=== PATIENT | male | born 1940 | race Caucasian/White ===

== ENCOUNTER 2016-10-30 15:11 | Inpatient (IN) | payer MEDICARE, OTHER ==
[~2016-10-30] VITALS: Ht 185.4 cm; Wt 88.5 kg
[~2016-10-30 15:11] MED LIST: CITA40 PO; PROT40TA PO; TAB-TAB PO; TAMS.4 PO; XANA1TAB6 PO
[2016-10-30 15:13] VITALS: BP 177/101; PULSE 74; RESP 14; TEMP 97.8; O2SAT 96
[2016-10-30 18:33] LABS: AUTOMATED NEUTROPHIL # 3.2 TH/MM3 (1.8-7.7); BASOPHIL # 0.1 TH/MM3 (0-0.2); BASOPHIL % 1.2 % (0.0-2.0); EOSINOPHIL # 0.1 TH/MM3 (0-0.4); EOSINOPHIL % 2.4 % (0.0-4.0); HEMATOCRIT 45.2 % (39.0-51.0); HEMO FLAGS DIFF FINAL; LYMPH % 31.2 % (9.0-44.0); LYMPHOCYTE # 1.8 TH/MM3 (1.0-4.8); MEAN CELL VOLUME 92.6 FL (80.0-100.0); MEAN CORPUSCULAR HEMOGLOBIN 30.1 PG (27.0-34.0); MEAN CORPUSCULAR HGB CONC 32.5 % (32.0-36.0); MONO % 8.7 % (0.0-8.0); NEUT % 56.5 % (16.0-70.0); PLATELET COUNT 183 TH/MM3 (150-450); RED BLOOD COUNT 4.89 MIL/MM3 (4.50-5.90); RED CELL DISTRIBUTION WIDTH 14.2 % (11.6-17.2); WHITE BLOOD COUNT 5.6 TH/MM3 (4.0-11.0)
[2016-10-30 18:51] LABS: ALT (GPT) 17 U/L (12-78); ANION GAP 9 MEQ/L (5-15); AST (GOT) 15 U/L (15-37); BICARBONATE 25.9 MEQ/L (21.0-32.0); BLOOD UREA NITROGEN 10 MG/DL (7-18); CHLORIDE 109 MEQ/L (98-107); GLOMERULAR FILTRATION RATE 94 ML/MIN (>89); POTASSIUM 3.7 MEQ/L (3.5-5.1); SODIUM (NA) 144 MEQ/L (136-145)
[2016-10-30 18:53] LABS: ALKALINE PHOSPHATASE 104 U/L (45-117); TOTAL BILIRUBIN ADULT 0.4 MG/DL (0.2-1.0)
--- NOTE | 2016-10-30 20:03 | PD ---
HPI . Depression Chief Complaint: Psychiatric Symptoms Time Seen by Provider: 19:55 Travel History International Travel<30 days: No Contact w/Intl Traveler<30days: No Traveled to known affect area: No History of Present Illness HPI Patient presents reporting depression. He states that he has a long-standing history of PTSD since the mom. He states that he is generally able to manage it. He states that on due to a series of unfortunately life events, the PTSD has "gotten the best of him." He denies any suicidal or homicidal ideation. PFSH Past Medical History Arthritis: No Asthma: No Atrial Fibrillation: No Autoimmune Disease: No Blood Disorders: No Anxiety: No Depression: Yes Heart Rhythm Problems: No Cancer: No Cardiovascular Problems: No High Cholesterol: No Chemotherapy: No Chest Pain: Yes (ANGINA ATTACK WHEN 45 YEARS OLD) Congestive Heart Failure: No COPD: Yes Cerebrovascular Accident: No Diabetes: No Diminished Hearing: No Endocrine: No Gastrointestinal Disorders: Yes (REFLUX) GERD: No Glaucoma: No Genitourinary: No Headaches: Yes ( SEVERE HEADACHE DUE TO EGGS) Hepatitis: No Hiatal Hernia: No Hypertension: Yes Immune Disorder: No Implanted Vascular Access Dvce: Yes Kidney Stones: No Musculoskeletal: No Neurologic: No Psychiatric: No Reproductive: No Respiratory: Yes (COPD) Migraines: No Myocardial Infarction: No Radiation Therapy: No Renal Failure: No Seizures: No Sleep Apnea: Yes Thyroid Disease: No Ulcer: No Past Surgical History Abdominal Surgery: Yes (LIZETH-Y, APPEND., choly) AICD: No Appendectomy: No Arteriovenous Shunt: No Body Medical Devices: 3 PINS IN LEFT SHOULDER DUE TO SURGERY IN 1994 Cardiac Surgery: Yes Cholecystectomy: No Ear Surgery: No Endocrine Surgery: No Eye Surgery: Yes (BILAT. CATARACT,) Genitourinary Surgery: No Gynecologic Surgery: No Insulin Pump: No Joint Replacement: Yes (3 PINS IN SHOLDER) Oral Surgery: Yes (TONSILS,) Pacemaker: No Thoracic Surgery: No Tonsillectomy: Yes Other Surgery: Yes Social History Alcohol Use: No Tobacco Use: No Substance Use: No Allergies-Medications (Allergen,Severity, Reaction): Coded Allergies: Oxycontin (Verified Allergy, Severe, Nausea/Vomiting, 10/30/16) Reported Meds & Prescriptions Reported Meds & Active Scripts Active Tamsulosin HCl 0.4 Mg Cap 0.4 Mg PO DAILY 30 Days Protonix (Pantoprazole Sodium) 40 Mg Tabdr 40 Mg PO DAILY 30 Days Reported Multivitamin (Multivitamins) 1 Tab Tab 1 Tab PO DAILY Xanax 1 mg (Alprazolam) Alprazolam 1 mg Tab 1 Tab PO HS Celexa 40 Mg Tab (Citalopram Hydrobromide) 40 Mg Tab 40 Mg PO DAILY Review of Systems Except as stated in HPI: all other systems reviewed are Neg General / Constitutional: No: Fever, Chills HENT: Positive: Headaches Gastrointestinal: Positive: Diarrhea Psychiatric: Positive: Depression, No: Suicidal Ideations, Homicidal Ideation Physical Exam Narrative GENERAL: Awake and alert and in no acute distress. SKIN: Warm and dry. CARDIOVASCULAR: Regular rate and rhythm. RESPIRATORY: No accessory muscle use. MUSCULOSKELETAL: No obvious deformities. No edema. NEUROLOGICAL: Awake and alert. No obvious cranial nerve deficits. Motor grossly within normal limits. Normal speech. PSYCHIATRIC: His overall mood appears sad but he does smile during the interview. He seems to have good judgment in that he is here for treatment. Data Data Last Documented VS Vital Signs Date Time Temp Pulse Resp B/P Pulse Ox O2 Delivery O2 Flow Rate FiO2 10/30/16 15:13 97.8 74 14 177/101 96 Room Air Orders Complete Blood Count With Diff (10/30/16 18:09) Comprehensive Metabolic Panel (10/30/16 18:09) Psych Screen (10/30/16 18:09) Labs Laboratory Tests Test 10/30/16 18:15 White Blood Count 5.6 TH/MM3 Red Blood Count 4.89 MIL/MM3 Hemoglobin 14.7 GM/DL Hematocrit 45.2 % Mean Corpuscular Volume 92.6 FL Mean Corpuscular Hemoglobin 30.1 PG Mean Corpuscular Hemoglobin 32.5 % Concent Red Cell Distribution Width 14.2 % Platelet Count 183 TH/MM3 Mean Platelet Volume 8.2 FL Neutrophils (%) (Auto) 56.5 % Lymphocytes (%) (Auto) 31.2 % Monocytes (%) (Auto) 8.7 % Eosinophils (%) (Auto) 2.4 % Basophils (%) (Auto) 1.2 % Neutrophils # (Auto) 3.2 TH/MM3 Lymphocytes # (Auto) 1.8 TH/MM3 Monocytes # (Auto) 0.5 TH/MM3 Eosinophils # (Auto) 0.1 TH/MM3 Basophils # (Auto) 0.1 TH/MM3 CBC Comment DIFF FINAL Differential Comment Sodium Level 144 MEQ/L Potassium Level 3.7 MEQ/L Chloride Level 109 MEQ/L Carbon Dioxide Level 25.9 MEQ/L Anion Gap 9 MEQ/L Blood Urea Nitrogen 10 MG/DL Creatinine 0.80 MG/DL Estimat Glomerular Filtration 94 ML/MIN Rate Random Glucose 102 MG/DL Calcium Level 8.7 MG/DL Total Bilirubin 0.4 MG/DL Aspartate Amino Transf 15 U/L (AST/SGOT) Alanine Aminotransferase 17 U/L (ALT/SGPT) Alkaline Phosphatase 104 U/L Total Protein 6.9 GM/DL Albumin 3.6 GM/DL [facility] Medical Decision Making Medical Screen Exam Complete: Yes Emergency Medical Condition: Yes Differential Diagnosis Differential diagnosis of depression includes but is not limited to episodic depression, major depression, bipolar disorder, PTSD Narrative Course Patient presents requesting speak to someone regarding depression. He is medically clear for psychiatric evaluation. Diagnosis Primary Impression: Depression Qualified Code: F33.1 - Moderate episode of recurrent major depressive disorder Condition: Stable Jackelin Bond MD Oct 30, 2016 20:03
[2016-10-30] MEDS ORDERED: MULT-137 PO (20:07)
[2016-10-30] MEDS ORDERED: CITA20TA4 PO (20:07)
[2016-10-30] MEDS ORDERED: DONE10TA7 PO (20:07)
[2016-10-30] MEDS ORDERED: OCUVTAB4 PO ×2 (20:07)
[2016-10-30] MEDS ORDERED: MAXA10TA2 (21:32)
[2016-10-30 22:45] VITALS: BP 168/85; PULSE 59; RESP 18; O2SAT 98
[2016-10-31 02:24] VITALS: BP 156/89; PULSE 69; RESP 17; O2SAT 98
[2016-10-31 05:16] VITALS: BP 158/85; PULSE 62; RESP 19; O2SAT 97
--- NOTE | 2016-10-31 08:44 | HHI.HP ---
Provisional Diagnosis Admission Date 10/31/2016 [place] I. 1. Major depressive disorder, recurrent, moderate 2. Posttraumatic stress disorder, chronic 3. Rule-out some degree of neurocognitive disorder [place] II. Deferred [place] V. GAF is 40 presently Certification of Person's Competence To Provide Express and Informed Consent I have personally examined Florin RiveraJr , a person being served at [facility], [place] on, Oct 31, 2016 08:44. Express and informed consent means consent voluntarily given in writing, by a competent person, after sufficient explanation and disclosure of the subject matter involved to enable the person to make a knowing and willful decision without any element of force, fraud, deceit, duress, or other form of constraint or coercion. This person is 18 years of age or older, is not now known to be incompetent to consent to treatment with a guardian advocate, and does not have a health care surrogate or proxy currently making medical treatment decisions. I have found this person to be one of the following: [x] Competent to provide express and informed consent, as defined above, for voluntary admission to this facility and is competent to provide express and informed consent for treatment. He/she has the consistent capacity to make well reasoned, willful, and knowing decisions concerning his or her medical or mental health treatment. The person fully and consistently understands the purpose of the admission for examination/placement and is fully capable of personally exercising all rights assured under [place] Incompetent to provide express and informed consent to voluntary admission, and this is incompetent to provide express and informed consent to treatment. The person must be transferred to involuntary status and a petition for a guardian advocate filed with the Circuit Court. [] Refusing to provide express and informed consent to voluntary admission but is competent to provide express and informed consent for treatment. The person must be discharged or transferred to involuntary status. Form shall be completed within 24 hours of a person's arrival at the receiving facility and filed in the clinical record of each person: 1. Admitted on a voluntary basis 2. Permitted to provide express and informed consent to his/her own treatment 3. Allowed to transfer from involuntary to voluntary status 4. Prior to permitting a person to consent to his or her own treatment after having been previously found incompetent to consent to treatment. History of Present Illness Capacity: Has Capacity HPI Mr. Rivera is a 76-year-old male with a reported history of depression and PTSD who presents on a voluntary basis for psychiatric evaluation. Reviewing the electronic medical record, I see no prior psychiatric contact within our system. Patient seen and examined. Chart reviewed. Case discussed with nursing staff and the J-pod. On my examination today, the patient reports "I'm having problems. I compare it to an electric circuit. When it's overloaded, it quits. " He says that he has been feeling increasingly depressed over the last 2 weeks or so. 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 He says he feels empty and endorses concentration, sleep and irritability difficulties. He denies any suicidal ideation noting "life is too short." No hypomanic or manic symptoms. He denies any audiovisual hallucinations, and I can elicit no delusional beliefs. He does endorse a significant history of combat trauma and says that he has been troubled more and more by nightmares and hyperarousal as his mood has worsened. No avoidance behavior. The remainder of the psychiatric ROS is negative. Past psychiatric history: Patient reports psychiatric history as detailed above. He is not currently under the care of a psychiatrist but is prescribed Celexa and Aricept by his primary care doctor. He denies a history of psychiatric admissions or suicide attempts. Family history: Patient denies a family history of serious mental illness or suicide. Chemical dependency history: Patient denies any current abuse of drugs or alcohol. He says that he quit drinking in 1973 and quit smoking around the same time. Social history: Patient resides in [place]. He is and has a girlfriend with whom he lives. He has no children. He does have a pet dog, a black Labrador. 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 He served in the [employer] during [place]. He is a [employer]. He does report that he keeps several guns including 5 long guns and about a dozen pistols. Review of Systems Other Patient complains of diarrhea for about the last week. No reported headache, vision or hearing changes, chest pain, shortness of breath, bladder issues. No other physical complaints. Past Psych History Psychological trauma history History of combat trauma Violence risk - others (6 mos) Lower imminent risk. No homicidal ideation. No psychotic or other mental illness process that would predispose to risk for violence. Violence risk - self (6 mos) Likely low imminent risk. No suicidal ideation. Future oriented. Mood has been worsening, but patient voluntarily sought help for this. No history of suicide attempts. No reported family history of suicide attempts. Patient does keep several guns but does not verbalize any suicide plans or history of suicide plans involving a firearm. Substance Abuse History Drugs/Alcohol past 12 months See above Past Family Social History Coded Allergies: Oxycontin (Verified Allergy, Severe, Nausea/Vomiting, 10/30/16) Past Medical History Includes a history of PATRICK on CPAP and headaches. Reported Medications Rizatriptan (Maxalt)10 Mg Tab 10/30/16 Multiple Vitamins W/ Minerals (Preservision Areds)1 Tab1 Tab PO BID Ref 0 10/30/16 Multiple Vitamins W/ Minerals (Preservision Areds)1 Tab2 Tab PO DAILY Ref 0 10/30/16 Donepezil 10 Mg Tab10 Mg PO HS #30 TAB Ref 0 10/30/16 Multiple Vitamins W/ Minerals (One Daily Complete For Men)1 Tab Tab1 Tab PO DAILY Ref 0 10/30/16 Discontinued Reported Medications Citalopram 20 Mg Tab20 Mg PO DAILY #30 TAB Ref 0 10/30/16 Multiple Vitamin (Multivitamin)1 Tab Tab1 Tab PO DAILY 10/19/14 Alprazolam (Xanax 1 mg)Alprazolam 1 mg Tab1 Tab PO HS 10/19/14 Citalopram Hydrobromide (Celexa 40 Mg Tab)40 Mg Tab40 Mg PO DAILY 12/18/12 Discontinued Scripts Tamsulosin HCl 0.4 Mg Cap0.4 Mg PO DAILY 30 Days Ref 2 Prov:SilvaCristian DO R1 11/03/14 Pantoprazole Sod (Protonix)40 Mg Tabdr40 Mg PO DAILY 30 Days Ref 3 Prov:SilvaCristian DO R1 11/03/14 Current Medications Medications (Trade) Dose Ordered Sig/Charmaine Route Start Time Stop Time Status Last Admin (Tylenol) 1,000 mg ONCE ONCE PO 10/31/16 08:45 10/31/16 08:46 UNV (Aricept) 10 mg HS PO 10/31/16 21:00 UNV (Theragran M Tab) 1 tab DAILY PO 10/31/16 09:00 UNV Family History See above Social History See above Patient's Strengths (min. 2) Intelligent. Verbally fluent. Physical Exam Physical examination completed by ED provider. On my examination today, patient appears to be well-nourished and well-developed and in no acute physical distress. No abnormal motor movements noted. Labs and vital signs reviewed. Vital Signs Vital Signs Date Time Temp Pulse Resp B/P Pulse Ox O2 Delivery O2 Flow Rate FiO2 10/31/16 05:16 62 19 158/85 97 Room Air 10/30/16 15:13 97.8 Lab Results Item Value Date Time White Blood Count 5.6 TH/MM3 10/30/161814 Hemoglobin 14.7 GM/DL 10/30/161814 Platelet Count 183 TH/MM3 10/30/16 181 Sodium Level 144 MEQ/L 10/30/16 181 Potassium Level 3.7 MEQ/L 10/30/161814 Blood Urea Nitrogen 10 MG/DL 10/30/16 1815 Creatinine 0.80 MG/DL 10/30/16 181 Aspartate Amino Transf (AST/SGOT) 15 U/L 10/30/16 1815 Alanine Aminotransferase (ALT/SGPT) 17 U/L 10/30/16 181 Alkaline Phosphatase 104 U/L 10/30/161814 Urine toxicology was not performed. Mental Status Examination Patient is in hospital gown. He is well groomed. He is awake and alert and oriented to person, place and date. His registration is 3 out of 3 in his recall is one out of 3 at 5 minutes. He is able to do serial sevens through 5 iterations with only 1 error. He is able to name 2 items and repeat a phrase. No abnormal motor movements noted. Speech is within normal limits for rate, tone and volume. Language and fund of knowledge seem above average. Mood is depressed and affect is restricted. Thought process linear. No loosening of associations. No evident delusions. Denies audiovisual hallucinations. Denies suicidal or homicidal ideation. Insight and judgment are fair. Assessment & Plan Problem List: (1) Major depressive disorder ICD Code: F32.9 (2) Chronic post-traumatic stress disorder (PTSD) ICD Code: F43.12 Assessment & Plan This is a 76-year-old male with psychiatric history as detailed above who presents on a voluntary basis for psychiatric evaluation. Patient reports worsening mood overlying a history of depression over the last 2 weeks in response to psychosocial stressors. Patient also reports exacerbation of underlying PTSD symptoms with prominent nightmares related to history of combat trauma. Patient is presently on Celexa and Aricept, although he is degree of cognitive impairment does not seem terribly severe at present. After a discussion of the risks and benefits, the patient requests to address his psychiatric symptoms on the inpatient psychiatric unit. We discuss multiple different strategies to manage both patient's depressive and PTSD symptoms including titrating Celexa, adding prazosin for nightmares, augmenting existing antidepressant or switching to a different agent. Patient elects to titrate Celexa and add prazosin after discussion of the risks and benefits of each strategy. I will admit the patient to the inpatient psychiatric unit to make the planned medication adjustments for stabilization and to observe. Admit inpatient. Voluntary status. Consult of the hospitalist for patient's complaints of diarrhea. C. difficile PCR. Patient uses CPAP at home and I have placed an order for this. PT evaluation and falls precautions. Check a TSH. Titrate Celexa to 30 mg daily. Add prazosin 1 mg at bedtime for nightmares. Risks and benefits of each discussed with the patient. Ativan as needed for anxiety, Benadryl as needed for EPS/sleep. Vitals every shift. Counselor to see and obtain collateral. Disposition planning. Estimated length of stay: 5-7 days. Discharge Planning Pending psychiatric stabilization Request HC Surrog/Guard Advoc?: No Problem Qualifiers (1) Major depressive disorder: Qualified Code: F33.1 - Moderate episode of recurrent major depressive disorder Junior Paiz MD Oct 31, 2016 08:44
[2016-10-31] MEDS ORDERED: CITALOPRAM HYDROBROMIDE 20 MG TAB PO SCH (09:00)
[2016-10-31] MEDS ORDERED: diphenhydrAMINE HCL 50 MG CAP PO PRN ×2 (09:30)
[2016-10-31] MEDS ORDERED: ALUMINUM/MAGNESIUM/SIMETH 30 ML CUP PO PRN (09:30)
[2016-10-31] MEDS ORDERED: LORazepam 0.5 MG TAB PO PRN (09:30)
[2016-10-31] MEDS ORDERED: MAGNESIUM HYDROXIDE SUSP 30 ML CUP PO PRN (09:30)
[2016-10-31] MEDS ORDERED: LORazepam 2 MG/ML VIAL IM PRN (09:30)
[2016-10-31] MEDS ORDERED: diphenhydrAMINE HCL 50 MG/ML VIAL IM PRN (09:30)
[2016-10-31] MEDS: ACETAMINOPHEN 325 MG TAB PO PRN ×2 (09:57→16:33)
[2016-10-31] MEDS ORDERED: cloNIDine HCL 0.1 MG TAB PO PRN (10:30)
[2016-10-31] MEDS ORDERED: ALBUTEROL SULFATE 90 MCG/ACT HFA 8 GM INHALER INH PRN (10:45)
[2016-10-31] MEDS: MULTIVITAMINS/MINERALS THERAPEUTIC TAB PO SCH (10:59)
[2016-10-31] MEDS ORDERED: ACETAMINOPHEN 500 MG CPLT PO ONE (11:00)
[2016-10-31 12:26] VITALS: BP 166/87; PULSE 69; RESP 18; TEMP 97.7; O2SAT 94
[2016-10-31] MEDS: LACTOBACILLUS ACIDOPHILUS TAB PO SCH ×2 (13:00→17:29)
--- NOTE | 2016-10-31 13:03 | PD.CONS ---
HPI Service [facility] Consult Requested By Psychiatric services Reason for Consult Diarrhea x 1 week. HTN Primary Care Physician Tamera Jones MD Diagnoses: History of Present Illness This is a 76-year-old male patient with a past medical history which includes PTSD, psoriasis, sleep apnea does use CPAP machine at home, occasional acid reflux, psoriasis and migraines. Patient is currently inpatient psychiatric center we have been consulted for assistance with management of diarrhea times one week and hypertension. Patient reports he does have a history of hypertension as well as hyperlipidemia which had resolved after his gastric bypass surgery. Patient reports he does not take any medication for hypertension at home. Patient does report he has had diarrhea for the past 6-7 days reports this is not normal for him when asked how many times per day patient moves his bowels he reports, "all day." Patient denies any evidence of bright red blood, black color or mucus present. Patient denies abdominal discomfort, pain, cramping, fevers, chills, nausea/vomiting, recent travel, sick contacts or well water consumption. Patient also denies antibiotic use in the past 30 days or changes in appetite. Patient denies chest pain, shortness of breath, headache or changes on vision as well. Review of Systems Except as stated in HPI: all other systems reviewed are Neg Past Family Social History Allergies: Coded Allergies: Oxycontin (Verified Allergy, Severe, Nausea/Vomiting, 10/30/16) Past Medical History PTSD, psoriasis, sleep apnea does use CPAP machine at home, occasional acid reflux, psoriasis and migraines Patient reports he does have a history of hypertension as well as hyperlipidemia which had resolved after his gastric bypass surgery. Past Surgical History Appendectomy, cholecystectomy, gastric bypass surgery, rotator cuff repair, hemorrhoidectomy, cataract surgery Reported Medications Maxalt (Rizatriptan Benzoate) 10 Mg Tab Preservision Areds (Multiple Vitamins W/ Minerals) 1 Tab 1 Tab PO BID Preservision Areds (Multiple Vitamins W/ Minerals) 1 Tab 2 Tab PO DAILY Donepezil 10 Mg Tab 10 Mg PO HS One Daily Complete For Men (Multiple Vitamins W/ Minerals) 1 Tab Tab 1 Tab PO DAILY Active Ordered Medications Current Medications Medications (Trade) Dose Ordered Sig/Charmaine Route Start Time Stop Time Status Last Admin (Aricept) 10 mg HS PO 10/31/16 21:00 (Theragran M Tab) 1 tab DAILY PO 10/31/16 09:00 10/31/16 10:59 (Minipress) 1 mg HS PO 10/31/16 21:00 (Ativan) 0.5 mg Q12H PRN PO 10/31/16 09:30 (Ativan Inj) 0.5 mg Q12H PRN IM 10/31/16 09:30 (Benadryl) 50 mg Q6H PRN PO 10/31/16 09:30 (Benadryl Inj) 50 mg Q6H PRN IM 10/31/16 09:30 (Benadryl) 50 mg HS PRN PO 10/31/16 09:30 (Tylenol) 650 mg Q4H PRN PO 10/31/16 09:30 10/31/16 09:57 (Milk Of Magnesia Liq) 30 ml DAILY PRN PO 10/31/16 09:30 (Mag-Al Plus Susp Liq) 30 ml Q6H PRN PO 10/31/16 09:30 (Habitrol 21 Mg Patch.24 Hr) 1 patch DAILY T-DERMAL 11/01/16 09:00 Miscellaneous Information 1 DAILY T-DERMAL 11/01/16 09:00 (CeleXA) 30 mg DAILY PO 10/31/16 11:00 (Lactinex) 1 tab TID PO 10/31/16 13:00 (Catapres) 0.1 mg Q6H PRN PO 10/31/16 10:30 (Proair Hfa Inh) 2 puff Q4H PRN INH 10/31/16 10:45 Family History Father at 75 secondary to EtOH abuse Mother had health history of hypertension hyperlipidemia MS in her 60s CVA in her 70s Social History Retired [employer] Quit EtOH use 1984 and quit tobacco use 1984 Physical Exam Vital Signs Vital Signs Date Time Temp Pulse Resp B/P Pulse Ox O2 Delivery O2 Flow Rate FiO2 10/31/16 12:26 97.7 69 18 166/87 94 10/31/16 05:16 62 19 158/85 97 Room Air 10/31/16 02:24 69 17 156/89 98 Room Air 10/30/16 22:45 59 18 168/85 98 Room Air 10/30/16 15:13 97.8 74 14 177/101 96 Room Air Physical Exam GENERAL: This is a well-nourished, well-developed patient, in no apparent distress. SKIN: No rashes, ecchymoses or lesions. Cool and dry. EYES: Extraocular motions intact. No scleral icterus. No injection or drainage. CARDIOVASCULAR: Regular rate and rhythm without murmurs, gallops, or rubs. RESPIRATORY: Clear to auscultation. Breath sounds equal bilaterally. No wheezes , rales, or rhonchi. GASTROINTESTINAL: Abdomen soft, non-tender, nondistended. No guarding. MUSCULOSKELETAL: Extremities without clubbing, cyanosis, or edema. No joint tenderness, effusion, or edema noted. No calf tenderness. Negative Homans sign bilaterally. NEUROLOGICAL: Awake and alert. No focal deficits. Motor and sensory grossly within normal limits. 4-5 out of 5 muscle strength in all muscle groups. Normal speech. Laboratory Laboratory Tests Test 10/30/16 18:15 White Blood Count 5.6 Red Blood Count 4.89 Hemoglobin 14.7 Hematocrit 45.2 Mean Corpuscular Volume 92.6 Mean Corpuscular Hemoglobin 30.1 Mean Corpuscular Hemoglobin 32.5 Concent Red Cell Distribution Width 14.2 Platelet Count 183 Mean Platelet Volume 8.2 Neutrophils (%) (Auto) 56.5 Lymphocytes (%) (Auto) 31.2 Monocytes (%) (Auto) 8.7 Eosinophils (%) (Auto) 2.4 Basophils (%) (Auto) 1.2 Neutrophils # (Auto) 3.2 Lymphocytes # (Auto) 1.8 Monocytes # (Auto) 0.5 Eosinophils # (Auto) 0.1 Basophils # (Auto) 0.1 CBC Comment DIFF FINAL Differential Comment Sodium Level 144 Potassium Level 3.7 Chloride Level 109 Carbon Dioxide Level 25.9 Anion Gap 9 Blood Urea Nitrogen 10 Creatinine 0.80 Estimat Glomerular Filtration 94 Rate Random Glucose 102 Calcium Level 8.7 Total Bilirubin 0.4 Aspartate Amino Transf 15 (AST/SGOT) Alanine Aminotransferase 17 (ALT/SGPT) Alkaline Phosphatase 104 Total Protein 6.9 Albumin 3.6 Result Diagram: 10/30/16181410/30/161814 Assessment and Plan Assessment and Plan This is a 76-year-old male patient with a past medical history which includes PTSD, psoriasis, sleep apnea does use CPAP machine at home, occasional acid reflux, psoriasis and migraines. Patient is currently inpatient psychiatric center we have been consulted for assistance with management of diarrhea times one week and hypertension. Patient reports he does have a history of hypertension as well as hyperlipidemia which had resolved after his gastric bypass surgery. Patient reports he does not take any medication for hypertension at home. Patient does report he has had diarrhea for the past 6-7 days Hypertension Possibly situational will start Norvasc 2.5 mg daily Clonidine 0.1 mg as needed Monitor trend Diarrhea 7 days Lactinex by mouth Stool sample for C. difficile encourage PO hydration CMP reviewed Monitor for dehydration Major depressive disorder PTSD management per psychiatric team DVT prophylaxis patient ambulatory- low risks Written by Amy Johnson, acting as scribe for Dr. Anderson on 10/31/16 at 13:20. All or portions of this note were transcribed by scribe Amy Johnson. I , Dr. Matthias Anderson personally performed the history, physical exam, and medical decision making; and confirmed the accuracy of the information in the transcribed note. Authenticated by Dr. Matthias Anderson on 10/31/16 at 13:50. Amy Johnson Oct 31, 2016 13:03 Matthias Anderson MD Oct 31, 2016 13:50
[2016-10-31] MEDS ORDERED: PILL SPLITTER OTHER PRN (13:15)
[2016-10-31] MEDS: CITALOPRAM HYDROBROMIDE 20 MG TAB PO SCH (13:49)
[2016-10-31] MEDS: amLODIPine BESYLATE 5 MG TAB PO SCH (13:53)
[2016-10-31 14:53] VITALS: BP 164/88; PULSE 70; O2SAT 93
[2016-10-31 14:55] VITALS: BP_SYST 156; BP_SYST 162; BP_DIAS 119; BP_DIAS 85; PULSE 69; PULSE 83; O2SAT 95; O2SAT 96
[2016-10-31 17:17] VITALS: BP 146/86; PULSE 73; RESP 18; TEMP 98.1; O2SAT 94
[2016-10-31] MEDS: DONEPEZIL HCL 5 MG TAB PO SCH (21:31)
[2016-10-31] MEDS: PRAZOSIN HCL 1 MG CAP PO SCH (21:31)
[2016-11-01] MEDS: ACETAMINOPHEN 325 MG TAB PO PRN ×3 (03:40→13:42)
[2016-11-01 06:10] VITALS: BP 120/65; PULSE 69; RESP 18; TEMP 97.8; O2SAT 93
[2016-11-01 08:29] LABS: ANION GAP 7 MEQ/L (5-15); BICARBONATE 31.1 MEQ/L (21.0-32.0); BLOOD UREA NITROGEN 11 MG/DL (7-18); CHLORIDE 103 MEQ/L (98-107); GLOMERULAR FILTRATION RATE 85 ML/MIN (>89); HDL CHOLESTEROL 39.1 MG/DL (40.0-60.0); LDL CHOLESTEROL 84 MG/DL (0-99); SODIUM (NA) 141 MEQ/L (136-145)
[2016-11-01 08:30] LABS: POTASSIUM 4.2 MEQ/L (3.5-5.1)
[2016-11-01] MEDS: LACTOBACILLUS ACIDOPHILUS TAB PO SCH ×3 (09:00→17:59)
[2016-11-01] MEDS: REMOVE OLD PATCH T-DERMAL SCH (09:00)
[2016-11-01] MEDS: NICOTINE 21 MG/24 HR PATCH T-DERMAL SCH (09:00)
[2016-11-01] MEDS: MULTIVITAMINS/MINERALS THERAPEUTIC TAB PO SCH (09:10)
[2016-11-01] MEDS: amLODIPine BESYLATE 5 MG TAB PO SCH (09:10)
[2016-11-01] MEDS: CITALOPRAM HYDROBROMIDE 20 MG TAB PO SCH (09:10)
--- NOTE | 2016-11-01 10:01 | HHI.PR ---
Subjective Remarks F/u Diarrhea and HTN. Does not feel well can't get warm. Last BM yesterday noon. Also chronic VALERIO. No other complaints. Ole RN Objective Vitals Vital Signs Date Time Temp Pulse Resp B/P Pulse Ox O2 Delivery O2 Flow Rate FiO2 11/01/16 06:10 97.8 69 18 120/65 93 10/31/16 17:17 98.1 73 18 146/86 94 10/31/16 14:55 69 162/85 96 10/31/16 14:55 83 156/119 95 10/31/16 14:53 70 164/88 93 10/31/16 12:26 97.7 69 18 166/87 94 Result Diagram: 10/30/16 1815 11/01/16 0640 Objective Remarks GENERAL: This is a well-nourished, well-developed patient, in no apparent distress. SKIN: No rashes, ecchymoses or lesions. Cool and dry. EYES: Extraocular motions intact. No scleral icterus. No injection or drainage. CARDIOVASCULAR: Regular rate and rhythm without murmurs, gallops, or rubs. RESPIRATORY: Clear to auscultation. Breath sounds equal bilaterally. No wheezes , rales, or rhonchi. GASTROINTESTINAL: Abdomen soft, non-tender, nondistended. No guarding. MUSCULOSKELETAL: Extremities without clubbing, cyanosis, or edema. No joint tenderness, effusion, or edema noted. No calf tenderness. Negative Homans sign bilaterally. NEUROLOGICAL: Awake and alert. No focal deficits. Motor and sensory grossly within normal limits. 4-5 out of 5 muscle strength in all muscle groups. Normal speech. Nonfocal A/P Assessment and Plan This is a 76-year-old male patient with a past medical history which includes PTSD, psoriasis, sleep apnea does use CPAP machine at home, occasional acid reflux, psoriasis and migraines. Patient is currently inpatient psychiatric center we have been consulted for assistance with management of diarrhea times one week and hypertension. Patient reports he does have a history of hypertension as well as hyperlipidemia which had resolved after his gastric bypass surgery. Patient reports he does not take any medication for hypertension at home. Patient does report he has had diarrhea for the past 6-7 days Hypertension Improving continue Norvasc 2.5 mg daily Clonidine 0.1 mg as needed Monitor trend Diarrhea 7 days Lactinex by mouth Stool sample for C. difficile encourage PO hydration CMP reviewed Monitor for dehydration Improving Major depressive disorder PTSD management per psychiatric team Chronic VALERIO/Migraines. Nonfocal. Check ESR. APAP prn DVT prophylaxis patient ambulatory- low risks Follow-up A1c Matthias Anderson MD Nov 01, 2016 10:01
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
[2016-11-01 17:15] LABS: HEMOGLOBIN A1b 1.8 %; HEMOGLOBIN Ao 85.8 %; HEMOGLOBIN LA1C 1.9 %; HEMOGLOBIN P3 3.7 %
[2016-11-01 19:25] VITALS: BP 150/71; PULSE 72; RESP 18; TEMP 97.4; O2SAT 98
[2016-11-01] MEDS: PRAZOSIN HCL 1 MG CAP PO SCH (20:04)
[2016-11-01] MEDS: DONEPEZIL HCL 5 MG TAB PO SCH (20:05)
[2016-11-02 06:06] VITALS: BP 121/67; PULSE 73; RESP 16; TEMP 98; O2SAT 93
[2016-11-02] MEDS: NICOTINE 21 MG/24 HR PATCH T-DERMAL SCH (09:00)
[2016-11-02] MEDS: REMOVE OLD PATCH T-DERMAL SCH (09:00)
[2016-11-02] MEDS: MULTIVITAMINS/MINERALS THERAPEUTIC TAB PO SCH (09:01)
[2016-11-02] MEDS: amLODIPine BESYLATE 5 MG TAB PO SCH (09:02)
[2016-11-02] MEDS: CITALOPRAM HYDROBROMIDE 20 MG TAB PO SCH (09:03)
[2016-11-02] MEDS: LACTOBACILLUS ACIDOPHILUS TAB PO SCH ×3 (09:08→18:02)
--- NOTE | 2016-11-02 11:02 | HHI.PR ---
Subjective Remarks F/u Diarrhea and HTN. Reports feeling well today offers no specific complaints. Reports headache has resolved no further diarrhea. Objective Vitals Vital Signs Date Time Temp Pulse Resp B/P Pulse Ox O2 Delivery O2 Flow Rate FiO2 11/02/16 06:06 98.0 73 16 121/67 93 11/01/16 19:25 97.4 72 18 150/71 98 I/O 11/01/16 11/01/16 11/01/16 11/02/16 11/02/16 11/02/16 07:00 15:00 23:00 07:00 15:00 23:00 Intake Total 240 ml 360 ml Balance 240 ml 360 ml Intake Oral 240 ml 360 ml Result Diagram: 10/30/16 1815 11/01/16 0640 Objective Remarks GENERAL: This is a well-nourished, well-developed patient, in no apparent distress. SKIN: No rashes, ecchymoses or lesions. Cool and dry. EYES: Extraocular motions intact. No scleral icterus. No injection or drainage. CARDIOVASCULAR: Regular rate and rhythm without murmurs, gallops, or rubs. RESPIRATORY: Clear to auscultation. Breath sounds equal bilaterally. No wheezes , rales, or rhonchi. GASTROINTESTINAL: Abdomen soft, non-tender, nondistended. No guarding. MUSCULOSKELETAL: Extremities without clubbing, cyanosis, or edema. No joint tenderness, effusion, or edema noted. No calf tenderness. Negative Homans sign bilaterally. NEUROLOGICAL: Awake and alert. No focal deficits. Motor and sensory grossly within normal limits. 4-5 out of 5 muscle strength in all muscle groups. Normal speech. No focal deficits appreciated A/P Assessment and Plan This is a 76-year-old male patient with a past medical history which includes PTSD, psoriasis, sleep apnea does use CPAP machine at home, occasional acid reflux, psoriasis and migraines. Patient is currently inpatient psychiatric center we have been consulted for assistance with management of diarrhea times one week and hypertension. Patient reports he does have a history of hypertension as well as hyperlipidemia which had resolved after his gastric bypass surgery. Patient reports he does not take any medication for hypertension at home. Patient does report he has had diarrhea for the past 6-7 days Hypertension Improving continue Norvasc 2.5 mg daily Clonidine 0.1 mg as needed Monitor trend Diarrhea 7 days- resolved Lactinex by mouth Stool sample for C. difficile- unable to collect secondary to no further stooling encourage PO hydration CMP reviewed Monitor for dehydration Major depressive disorder PTSD management per psychiatric team Headache/Migraines. Nonfocal.- Possibly related to caffeine withdrawal has resolved ESR 7 Acetaminophen as needed DVT prophylaxis patient ambulatory- low risks A1c 5.4 Patient appears medically stable at this point will sign off. If patient's condition changes or further assistance is needed please reconsult Recommend patient continue Norvasc 2.5 mg daily and follow-up with PCP in one week Written by Amy Johnson, acting as scribe for Dr. Anderson on 11/02/16 at 11:02. All or portions of this note were transcribed by scribe Amy Johnson]. I , Dr. Matthias Anderson personally performed the history, physical exam, and medical decision making; and confirmed the accuracy of the information in the transcribed note. Authenticated by Dr. Matthias Anderson on 11/02/16 at 14:28. Amy Johnson Nov 02, 2016 11:02 Matthias Anderson MD Nov 02, 2016 14:28
[2016-11-02] MEDS ORDERED: AMLO5 PO (11:03)
--- NOTE | 2016-11-02 13:17 | HHI.PYPN ---
Subjective Remarks Patient seen in day room with activities therapist Richy, chart reviewed. Patient alert oriented somewhat elevated mood, mildly labile speech somewhat increased in rate and rhythm. I question if patient showing some mild mood swings. Though he denies any significant history that might be construed as manic. Patient states she slept well last night. Much calmer inside is having a conversation with his girlfriend. He denies suicidality homicidality voices or visions. It appears she showing some insight into his need to refrain from large amounts of caffeine also. Discussed medication with him will add Abilify 10 mg at at bedtime. If patient continues to do well consider discharge tomorrow or the day after Review of Systems Except as stated in HPI: all other systems reviewed are Neg Objective Alert: Yes [place]: Person, Place, Date, Situation Mood: Calm (to slightly elevated), Happy Affect: Other (slight increase range and intensity) Memory Intact: Immediate, Recent, Remote Hallucinations: Other (denies) Delusions: No Delusion Type: Other (denies) Suicidal: Ideation (denies) Homicidal: Ideation (denies) Insight/Judgement Poor to fair Labs Test 11/01/16 16:31 Erythrocyte Sedimentation Rate 7 mm/hr Vitals/IOs Vital Signs Date Time Temp Pulse Resp B/P Pulse Ox O2 Delivery O2 Flow Rate FiO2 11/02/16 06:06 98.0 73 16 121/67 93 10/31/16 05:16 Room Air Intake and Output 11/01/16 11/01/16 11/02/16 08:00 16:00 00:00 Intake Total 240 ml 360 ml Balance 240 ml 360 ml Assessment & Plan Problem List: (1) Major depressive disorder ICD Code: F32.9 (2) Chronic post-traumatic stress disorder (PTSD) ICD Code: F43.12 Assessment & Plan Estimated LOS: days patient mood improving, there is some indication that he may be doing some mild cycling. Will add Abilify 10 mg at bedtime to the regimen Justification for Cont. Inpt. At this time patient could decompensate if placed in a lower level of care Discharge Planning To be determined consider discharge tomorrow if patient tolerates initial dose of Abilify Request HC Surrog/Guard Advoc?: No Problem Qualifiers (1) Major depressive disorder: Qualified Code: F33.1 - Moderate episode of recurrent major depressive disorder Remi Canas MD Nov 02, 2016 13:17
[2016-11-02 18:54] VITALS: BP 150/74; PULSE 68; RESP 16; TEMP 98.3; O2SAT 99
[2016-11-02] MEDS: PRAZOSIN HCL 1 MG CAP PO SCH (20:04)
[2016-11-02] MEDS: DONEPEZIL HCL 5 MG TAB PO SCH (20:05)
[2016-11-02] MEDS ORDERED: ARIPiprazole 10 MG TAB PO SCH (21:00)
[2016-11-03 06:19] VITALS: BP 121/81; PULSE 69; RESP 16; TEMP 97.6; O2SAT 94
[2016-11-03] MEDS: MULTIVITAMINS/MINERALS THERAPEUTIC TAB PO SCH (08:52)
[2016-11-03] MEDS: amLODIPine BESYLATE 5 MG TAB PO SCH (08:53)
[2016-11-03] MEDS: CITALOPRAM HYDROBROMIDE 20 MG TAB PO SCH (08:53)
[2016-11-03] MEDS: NICOTINE 21 MG/24 HR PATCH T-DERMAL SCH (08:58)
[2016-11-03] MEDS: REMOVE OLD PATCH T-DERMAL SCH (09:00)
[2016-11-03] MEDS: LACTOBACILLUS ACIDOPHILUS TAB PO SCH ×2 (09:00→13:12)
[2016-11-03] MEDS ORDERED: ARIC10TA PO (11:04)
[2016-11-03] MEDS ORDERED: PRAZ1 PO (11:04)
[2016-11-03] MEDS ORDERED: LACT PO (11:04)
[2016-11-03] MEDS ORDERED: ARIP1TAB12 PO (11:04)
[2016-11-03] MEDS ORDERED: CELE20TA PO (11:04)
[2016-11-03] MEDS ORDERED: THERM PO (11:04)
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
== END 2016-11-03 14:35 | disposition home or self-care (01) | DRG 882 ==
LOC: NEPA 15:11 → NEDA 10-31 08:42 → H260 10-31 11:20
PROVIDERS: ADMIT Psychiatry & Neurology Psychiatry; ATTEND Psychiatry & Neurology Psychiatry
DX: F43.12 Post-traumatic stress disorder, chronic (principal); F32.9 Major depressive disorder, single episode, unspecified; I10 Essential (primary) hypertension; G43.909 Migraine, unspecified, not intractable, without status migrainosus; G47.33 Obstructive sleep apnea (adult) (pediatric); Z98.84 Bariatric surgery status; R19.7 Diarrhea, unspecified; Z87.891 Personal history of nicotine dependence
CPT/HCPCS: 80048; 80053; 80061; 83036; 84443; 85025; 85652; 99284; Q0163

== ENCOUNTER → 2016-12-19 | Outpatient (CLI) | payer MEDICARE, OTHER ==
[~2016-12-19] MED LIST changes: +AMLO5 PO; +ARIC10TA PO; +ARIP1TAB12 PO; +CELE20TA PO; -CITA40 PO; +DONE10TA7 PO; +LACT PO; +MAXA10TA2; +OCUVTAB4 PO; +PRAZ1 PO; -PROT40TA PO; -TAB-TAB PO; -TAMS.4 PO; +THERM PO; -XANA1TAB6 PO
[2016-12-19 15:35] LABS: AUTOMATED NEUTROPHIL # 3.7 TH/MM3 (1.8-7.7); BASOPHIL # 0.1 TH/MM3 (0-0.2); BASOPHIL % 0.9 % (0.0-2.0); EOSINOPHIL # 0.1 TH/MM3 (0-0.4); EOSINOPHIL % 1.9 % (0.0-4.0); HEMATOCRIT 46.4 % (39.0-51.0); HEMO FLAGS DIFF FINAL; LYMPH % 26.3 % (9.0-44.0); LYMPHOCYTE # 1.6 TH/MM3 (1.0-4.8); MEAN CELL VOLUME 94.7 FL (80.0-100.0); MEAN CORPUSCULAR HEMOGLOBIN 30.2 PG (27.0-34.0); NEUT % 59.9 % (16.0-70.0); PLATELET COUNT 217 TH/MM3 (150-450); RED CELL DISTRIBUTION WIDTH 13.9 % (11.6-17.2); WHITE BLOOD COUNT 6.3 TH/MM3 (4.0-11.0)
[2016-12-19 15:55] LABS: ALT (GPT) 21 U/L (12-78); ANION GAP 6 MEQ/L (5-15); AST (GOT) 17 U/L (15-37); BLOOD UREA NITROGEN 11 MG/DL (7-18); CHLORIDE 109 MEQ/L (98-107); GLOMERULAR FILTRATION RATE 69 ML/MIN (>89); POTASSIUM 4.7 MEQ/L (3.5-5.1); SODIUM (NA) 144 MEQ/L (136-145)
[2016-12-19 15:58] LABS: ALKALINE PHOSPHATASE 103 U/L (45-117); TOTAL BILIRUBIN ADULT 0.4 MG/DL (0.2-1.0)
[2016-12-21 20:34] LABS: MITOGEN MINUS NIL RESULT >10.00 IU/mL (()); NIL RESULT 0.02 IU/mL (()); QUANTIFERON TB GOLD RESULT Negative (Negative)
== END ==
LOC: PLAB 12-15 11:46
PROVIDERS: ATTEND Dermatology
DX: L30.9 Dermatitis, unspecified (principal); Z79.899 Other long term (current) drug therapy
CPT/HCPCS: 36415; 80053; 85025; 86480

== ENCOUNTER → 2017-02-12 | Outpatient (CLI) | payer MEDICARE, OTHER ==
[2017-02-12 12:56] LABS: AUTOMATED NEUTROPHIL # 2.5 TH/MM3 (1.8-7.7); BASOPHIL % 1.1 % (0.0-2.0); EOSINOPHIL # 0.1 TH/MM3 (0-0.4); EOSINOPHIL % 2.9 % (0.0-4.0); HEMATOCRIT 41.9 % (39.0-51.0); HEMO FLAGS DIFF FINAL; LYMPH % 29.9 % (9.0-44.0); LYMPHOCYTE # 1.3 TH/MM3 (1.0-4.8); MEAN CELL VOLUME 94.3 FL (80.0-100.0); MEAN CORPUSCULAR HEMOGLOBIN 31.5 PG (27.0-34.0); MEAN CORPUSCULAR HGB CONC 33.4 % (32.0-36.0); MONO % 9.4 % (0.0-8.0); NEUT % 56.7 % (16.0-70.0); PLATELET COUNT 243 TH/MM3 (150-450); RED BLOOD COUNT 4.44 MIL/MM3 (4.50-5.90); RED CELL DISTRIBUTION WIDTH 14.1 % (11.6-17.2); WHITE BLOOD COUNT 4.4 TH/MM3 (4.0-11.0)
[2017-02-12 13:25] LABS: ANION GAP 5 MEQ/L (5-15); AST (GOT) 19 U/L (15-37); BICARBONATE 28.9 MEQ/L (21.0-32.0); BLOOD UREA NITROGEN 13 MG/DL (7-18); CHLORIDE 109 MEQ/L (98-107); GLOMERULAR FILTRATION RATE 75 ML/MIN (>89); GLUCOSE,FASTING 99 MG/DL (74-99); MAGNESIUM 2.2 MG/DL (1.5-2.5); POTASSIUM 4.1 MEQ/L (3.5-5.1); SODIUM (NA) 143 MEQ/L (136-145)
[2017-02-12 13:52] LABS: ALKALINE PHOSPHATASE 87 U/L (45-117); ALT (GPT) 23 U/L (12-78); FERRITIN 42 NG/ML (26-388); FREE T3 2.42 PG/ML (2.18-3.98); FREE T4 0.99 NG/DL (0.76-1.46); HDL CHOLESTEROL 40.3 MG/DL (40.0-60.0); LDL CHOLESTEROL 104 MG/DL (0-99); TOTAL BILIRUBIN ADULT 0.5 MG/DL (0.2-1.0); TRANSFERRIN IRON PROFILE 259 MG/DL (200-360)
== END ==
LOC: PLAB 08:04
PROVIDERS: ATTEND Surgery
DX: R13.10 Dysphagia, unspecified (principal); E66.9 Obesity, unspecified; R63.4 Abnormal weight loss; Z79.899 Other long term (current) drug therapy; Z98.84 Bariatric surgery status
CPT/HCPCS: 36415; 80053; 80061; 82306; 82607; 82728; 82746; 83540; 83550; 83735; 83970; 84100; 84439; 84443; 84481; 84590; 85025

== ENCOUNTER → 2017-02-23 | Day surgery (SDC) | payer MEDICARE, OTHER ==
[~2017-02-23] MED LIST changes: +LACTATED RINGER'S 1000 ML INJ 1,000 ML ONE; +PROPOFOL 500 MG/50 ML BTL IV ONE
--- NOTE | 2017-02-23 08:45 | GIPROC ---
[facility] [address], [id number] EGD WITH DILATION PROCEDURE REPORT EXAM DATE: 02/23/2017 PATIENT NAME: Florin Rivera MR#: [id number] BIRTHDATE: 1940 ATTENDING: Conner Pennington MD ORDER #: [id number] MURAL PAINTER: none STATUS: outpatient INDICATIONS: The patient is a 76 yr old male here for an EGD with dilation due to dysphagia PROCEDURE PERFORMED: Panendoscopy with Dilation MEDICATIONS: None and Per Anesthesia. TOPICAL ANESTHETIC: none CONSENT: The patient understands the risks and benefits of the procedure and understands that these risks include, but are not limited to: sedation, allergic reaction, infection, perforation and/or bleeding. Alternative means of evaluation and treatment include, among others: physical exam, x-rays, and/or surgical intervention. The patient elects to proceed with this endoscopic procedure. medical equipment was checked for proper function. Hand hygiene and appropriate measures for infection prevention was taken. After the risks, benefits and alternatives of the procedure were thoroughly explained, Informed consent was verified, confirmed and timeout was successfully executed by the treatment team. The patient was anesthetized with anesthesia and the EC-[id number] ([id number]) endoscope was introduced through the mouth and advanced to the anastomosis. Balloon dilation to 20. Superficial erythema and very minimal ulceration noted. The instrument was slowly withdrawn as the mucosa was fully examined. Stricturing of the GJ anastomsis, superficial ulceration, pouch dilation with appearance of diverticulum. Dilation was performed at gastrojejunostomy. DILATOR: SIZE(S): RESISTANCE: HEME: APPEARANCE: Dilator: Balloon over guidewire Size(s): 20 Resistance: moderate Appearance: adequate COMMENT: Retroflexion was not performed ADVERSE EVENTS: There were no complications. IMPRESSIONS: 1. Stricturing of the GJ anastomsis, superficial ulceration, pouch dilation with appearance of diverticulum 2. Retroflexion was not performed RECOMMENDATIONS: Start PPI REPEAT EXAM: NONE Conner Pennington MD eSigned: Conner Pennington MD 02/23/2017 8:44 AM cc: James Potter M.D. PATIENT NAME: Florin Rivera MR#: [id number]
== END | disposition home or self-care (01) ==
LOC: ESDC 06:23
PROVIDERS: ATTEND Surgery
DX: R13.10 Dysphagia, unspecified (principal); K56.69 Other intestinal obstruction
CPT/HCPCS: 00740; 43245; C1726; J3010; J7120

== ENCOUNTER → 2017-03-23 | Outpatient (CLI) | payer MEDICARE, OTHER ==
[~2017-03-23] MED LIST changes: -LACTATED RINGER'S 1000 ML INJ 1,000 ML ONE; -PROPOFOL 500 MG/50 ML BTL IV ONE
[2017-03-23 11:54] LABS: AUTOMATED NEUTROPHIL # 2.4 TH/MM3 (1.8-7.7); EOSINOPHIL # 0.2 TH/MM3 (0-0.4); EOSINOPHIL % 5.4 % (0.0-4.0); HEMO FLAGS DIFF FINAL; LYMPH % 28.2 % (9.0-44.0); LYMPHOCYTE # 1.3 TH/MM3 (1.0-4.8); MEAN CELL VOLUME 96.2 FL (80.0-100.0); MEAN CORPUSCULAR HEMOGLOBIN 32.7 PG (27.0-34.0); MEAN CORPUSCULAR HGB CONC 33.9 % (32.0-36.0); MONO % 11.1 % (0.0-8.0); NEUT % 54.3 % (16.0-70.0); PLATELET COUNT 223 TH/MM3 (150-450); RED BLOOD COUNT 4.36 MIL/MM3 (4.50-5.90); RED CELL DISTRIBUTION WIDTH 14.4 % (11.6-17.2); WHITE BLOOD COUNT 4.5 TH/MM3 (4.0-11.0)
[2017-03-23 12:16] LABS: ALT (GPT) 17 U/L (12-78); ANION GAP 7 MEQ/L (5-15); AST (GOT) 18 U/L (15-37); BICARBONATE 29.3 MEQ/L (21.0-32.0); BLOOD UREA NITROGEN 8 MG/DL (7-18); CHLORIDE 108 MEQ/L (98-107); GLOMERULAR FILTRATION RATE 77 ML/MIN (>89); GLUCOSE,FASTING 102 MG/DL (74-99); POTASSIUM 4.5 MEQ/L (3.5-5.1); SODIUM (NA) 144 MEQ/L (136-145)
[2017-03-23 12:20] LABS: ALKALINE PHOSPHATASE 96 U/L (45-117); HDL CHOLESTEROL 36.7 MG/DL (40.0-60.0); LDL CHOLESTEROL 88 MG/DL (0-99); TOTAL BILIRUBIN ADULT 0.5 MG/DL (0.2-1.0)
== END ==
LOC: PLAB 09:10
PROVIDERS: ATTEND Nurse Practitioner Family
DX: Z98.84 Bariatric surgery status (principal); Z68.31 Body mass index [BMI] 31.0-31.9, adult
CPT/HCPCS: 36415; 80053; 80061; 85025

== ENCOUNTER → 2017-09-06 | Outpatient (CLI) | payer MEDICARE, OTHER ==
[2017-09-06 16:55] LABS: AUTOMATED NEUTROPHIL # 3.4 TH/MM3 (1.8-7.7); BASOPHIL % 0.9 % (0.0-2.0); EOSINOPHIL # 0.1 TH/MM3 (0-0.4); EOSINOPHIL % 2.4 % (0.0-4.0); HEMATOCRIT 43.3 % (39.0-51.0); HEMOGLOBIN 14.4 GM/DL (13.0-17.0); LYMPH % 26.8 % (9.0-44.0); LYMPHOCYTE # 1.5 TH/MM3 (1.0-4.8); MEAN CORPUSCULAR HEMOGLOBIN 31.9 PG (27.0-34.0); MEAN CORPUSCULAR HGB CONC 33.2 % (32.0-36.0); MEAN PLATELET VOLUME 7.6 FL (7.0-11.0); MONO % 8.7 % (0.0-8.0); MONOCYTE # 0.5 TH/MM3 (0-0.9); NEUT % 61.2 % (16.0-70.0); PLATELET COUNT 278 TH/MM3 (150-450); RED BLOOD COUNT 4.51 MIL/MM3 (4.50-5.90); RED CELL DISTRIBUTION WIDTH 13.7 % (11.6-17.2); WHITE BLOOD COUNT 5.5 TH/MM3 (4.0-11.0)
[2017-09-06 17:15] LABS: ALBUMIN 3.6 GM/DL (3.4-5.0); AST (GOT) 15 U/L (15-37); BICARBONATE 25.5 MEQ/L (21.0-32.0); BLOOD UREA NITROGEN 9 MG/DL (7-18); CALCIUM 8.8 MG/DL (8.5-10.1); CHLORIDE 108 MEQ/L (98-107); CREATININE 0.88 MG/DL (0.60-1.30); GLOMERULAR FILTRATION RATE 84 ML/MIN (>89); GLUCOSE,FASTING 74 MG/DL (74-99); SODIUM (NA) 140 MEQ/L (136-145)
[2017-09-06 17:16] LABS: ALT (GPT) 21 U/L (12-78); CHOLESTEROL 148 MG/DL (120-200)
[2017-09-06 17:18] LABS: ALKALINE PHOSPHATASE 89 U/L (45-117); CHOLESTEROL/ HDL RATIO 3.87 RATIO; HDL CHOLESTEROL 38.2 MG/DL (40.0-60.0); LDL CHOLESTEROL 88 MG/DL (0-99); TOTAL BILIRUBIN ADULT 0.5 MG/DL (0.2-1.0); TOTAL PROTEIN 7.3 GM/DL (6.4-8.2); TRIGLYCERIDES 111 MG/DL (42-150)
== END ==
LOC: PLAB 13:34
PROVIDERS: ATTEND Dermatology MOHS-Micrographic Surgery
DX: L30.9 Dermatitis, unspecified (principal); Z79.899 Other long term (current) drug therapy
CPT/HCPCS: 36415; 80053; 80061; 85025